=== PATIENT | male | born 1980 | race Caucasian/White ===

== ENCOUNTER 2018-12-21 11:59 | Emergency (ER) | payer OTHER ==
[~2018-12-21] VITALS: Ht 180.3 cm; Wt 127.0 kg
--- NOTE | 2018-12-21 13:22 | NUR ---
pt here with " ". pt alert [facility] 15. pt accidentally stabbed himself with knife in right thumb approx. 1130 today. pt has approx 3/4 inch vy 2/8 inch nonbleeding laceration right lateral. thumb proximal to wrist. pain rating 6. positive pulse and sensation right wrist and pt can move thumb. last tetanus 2014 or 2015. pt relates " felt like it hit a bone". done ann pt at 1329.
[2018-12-21] MEDS ORDERED: ONDANSETRON 4 MG (ZOFRAN) ORAL DISSOLVE TAB SL STA (13:49)
--- NOTE | 2018-12-21 14:30 | ED Upper Extremity ---
General Chief Complaint: Laceration Stated Complaint: LACERATION Nursing Triage Note: right thumb lac. Nursing Sepsis Screen: No Definite Risk History of Present Illness Date Seen by Provider: Dec 21, 2018 Time Seen by Provider: 13:45 Initial Comments 38-year-old male sustained an injury to the dorsum of his right thumb when cutting a tire with a knife at work. He is left-hand dominant he works at [employer], his last tetanus vaccine was approximately 2 years ago. Onset: just prior to arrival Pain/Injury Location: right thumb Method of Injury: incised Allergies and Home Medications Allergies Coded Allergies: No Known Drug Allergies (Unverified , 12/21/18) Home Medications Cephalexin 500 Mg Tablet, 500 MG PO TID Prescribed by: XI SHELDON on 12/21/18 1431 Patient Home Medication List Home Medication List Reviewed: Yes Review of Systems Constitutional: no symptoms reported, see HPI Skin: see HPI, other (laceration right thumb) All Other Systems Reviewed Negative Unless Noted: Yes Past Zmjuwnf-Hfqyqt-Zbhucr Hx Past Med/Social Hx: Reviewed Nursing Past Med/Soc Hx Patient Social History Alcohol Use: Occasionally Uses Recreational Drug Use: No Smoking Status: Current Everyday Smoker Recent Foreign Travel: No Contact w/Someone Who Travel: No Recent Infectious Disease Expo: No Physical Abuse: No Sexual Abuse: No Immunizations Up To Date Tetanus Booster (TDap): Less than 5yrs Physical Exam Vital Signs Vital Signs - First Documented 12/21/18 12/21/18 13:22 14:47 Temp 98.3 Pulse 88 Resp 12 B/P (MAP) 124/89 (101) Pulse Ox 97 O2 Delivery Room Air Capillary Refill : Less Than 3 Seconds Height, Weight, BMI Height: 5'11.00" Weight: 280lbs. oz. 127.777583py; BMI Method:Stated General Appearance: WD/WN, no apparent distress Neck: non-tender, full range of motion, supple, normal inspection Cardiovascular: normal peripheral pulses, regular rate, rhythm Respiratory: chest non-tender, lungs clear, normal breath sounds Hand: normal ROM, Right, laceration, soft tissue tenderness Neurologic/Psychiatric: no motor/sensory deficits, alert, normal mood/affect, oriented x 3 Skin: normal color, warm/dry Procedures/Interventions Wound Location: Upper Extremities (right thumb) Wound Length (cm): 1.5 Wound's Depth, Shape: superficial Wound Explored: clean Irrigated w/ Saline (ccs): 500 Other Closure Supply: Wound Adhesive Sterile Dressing Applied?: No Progress Patient tolerated closure well, wound well approximated. Progress/Results/Core Measures Results/Orders My Orders Orders - XI SHELDON Ondansetron Oral Dissolve Tab (Zofran (12/21/18 13:49) Vital Signs/I&O 12/21/18 12/21/18 13:22 14:47 Temp 98.3 96.9 Pulse 88 72 Resp 12 20 B/P (MAP) 124/89 (101) 122/83 (96) Pulse Ox 97 O2 Delivery Room Air Blood Pressure Mean: 101 Departure Impression Primary Impression: Laceration of right thumb Qualified Codes: S61.011A - Laceration without foreign body of right thumb without damage to nail, initial encounter Disposition: HOME, SELF-CARE Condition: Improved Departure-Patient Inst. Decision time for Depature: 14:15 Patient Instructions: Laceration Repair With Glue (DC) Add. Discharge Instructions: Take antibiotic as prescribed. Ice to wound 20 min every 4 hours, for pain or swelling. Keep clean and dry for 8 hours, then you may shower. Do not submerge the right hand in standing water: sink, bathtub, swimming pool, hot tub, etc. You may shower, don't let water aim directly at incision. You may use Tylenol 650 mg and ibuprofen 600 mg alternating every 4 hours for pain. Do not apply any petroleum based products to the wound adhesive: triple anabiot ic ointment or Vaseline type products. Let the wound adhesive fall off, on it's own. Do not pick or remove it. Wound for signs of infection: Redness, increased tenderness, warmth, or discolored drainage. Follow-up with your primary care provider in 2-3 days if symptoms are not improving or worsen. Return to emergency department for new, urgent health care needs. All discharge instructions reviewed with patient and/or family. Voiced understanding. Scripts Cephalexin (Cephalexin) 500 Mg Tablet 500 MG PO TID, #15 TAB 0 Refills Prov: XI SHELDONP 12/21/18 Work/School Note: Work Release Form Date Seen in the Emergency Department: Dec 21, 2018 Return to Work: Dec 22, 2018 Other Restrictions Listed Below: Limit use of right hand for lifting or carrying. XI SHELDON Dec 21, 2018 14:30
[2018-12-21] MEDS ORDERED: CEPH500T PO (14:31)
[2018-12-21 14:47] VITALS: BP 122/83
--- NOTE | 2018-12-21 14:47 | NUR ---
d/c instructions to pt. told to read all papers. scripts faxed. pt left ambulatory with . pt knows f/u. i went over the handtyped by information on the chart. pt had no iv. work release given.
== END 2018-12-21 14:47 | disposition home or self-care (01) ==
LOC: ER 12:00
DX: S61.011A Laceration without foreign body of right thumb without damage to nail, initial encounter (principal); F17.200 Nicotine dependence, unspecified, uncomplicated; W26.0XXA Contact with knife, initial encounter; Y99.0 Civilian activity done for income or pay; Y92.59 Other trade areas as the place of occurrence of the external cause
CPT/HCPCS: 12001

== ENCOUNTER 2021-10-13 17:02 | Emergency (ER) | payer BC ==
[~2021-10-13] VITALS: Ht 180 cm; Wt 129.0 kg
[~2021-10-13 17:02] MED LIST: CEPH500T PO
[2021-10-13 17:05] VITALS: BP 113/69
--- NOTE | 2021-10-13 18:18 | ED Upper Extremity ---
General Chief Complaint: Laceration Stated Complaint: R HAND LAC/VOMITING/SYNCOPE Nursing Triage Note: LACERTION TO RIGHT HAND DUE TO SCRAPING IT ON HIS DOGS TOOTH. STATES IT WAS NOT A DOG BITE. PT THEN PASSED OUT AND VOMITED. Source: patient Exam Limitations: no limitations History of Present Illness Date Seen by Provider: Oct 13, 2021 Time Seen by Provider: 17:41 Initial Comments This is a well-appearing 41-year-old male who presented to the ER with a laceration to his right hand that was sustained by his dog's tooth. States that his dog got off the chain and while they were trying to "vargas her" she was running with her mouth open and his hand caught her tooth cutting it open. They just adopted her from the [employer] today and she is up-to-date on all of her immunizations including her rabies. States that whenever he saw the blood he became lightheaded, passed out, and when he woke up he vomited. States that he has had issues with feeling queasy when exposed to blood in the past however this was the worst. He is feeling much improved now. His tetanus is up-to-date. Allergies and Home Medications Allergies Coded Allergies: No Known Drug Allergies (Unverified , 12/21/18) Patient Home Medication List Home Medication List Reviewed: Yes Amoxicillin/Potassium Clav (Amox Tr-K Clv 875-125 mg Tab) 875 Mg-125 Mg Tablet, 1 EACH PO BID Prescribed by: MARIBETH SANTANA on 10/13/21 1843 Cephalexin (Cephalexin) 500 Mg Tablet, 500 MG PO TID Prescribed by: XI SHELDON on 12/21/18 1431 Review of Systems Constitutional: see HPI EENTM: no symptoms reported Respiratory: no symptoms reported Cardiovascular: no symptoms reported Gastrointestinal: see HPI Genitourinary: no symptoms reported Musculoskeletal: no symptoms reported Skin: other ("pagan" and sweaty ) Psychiatric/Neurological: See HPI Past Fzfntyy-Hcrylv-Bwvvfw Hx Patient Social History Smoking Status: Current Everyday Smoker Substance use?: No Alcohol Use?: No Immunizations Up To Date Tetanus Booster (TDap): Less than 5yrs Physical Exam Vital Signs Vital Signs - First Documented 10/13/21 17:05 Temp 36.3 Pulse 75 Resp 16 B/P (MAP) 113/69 (84) Pulse Ox 94 O2 Delivery Room Air Capillary Refill : Less Than 3 Seconds Height, Weight, BMI Height: 5'11.00" Weight: 280lbs. oz. 127.002143cs; 39.00 BMI Method:Stated General Appearance: WD/WN, no apparent distress HEENT: PERRL/EOMI, normal ENT inspection Neck: full range of motion, normal inspection Cardiovascular: regular rate, rhythm, no murmur; No gallop/S3, No friction rub Respiratory: lungs clear, normal breath sounds, no respiratory distress, no accessory muscle use Gastrointestinal: normal bowel sounds, non tender, soft Back: normal inspection, no vertebral tenderness Shoulder: normal inspection, no evidence of injury Wrist: Yes normal inspection, Yes no evidence of injury Hand: Right, laceration (3cm linear laceration over right thumb base ), swelling Neurologic/Tendon: normal sensation, normal motor functions, normal tendon functions, responds to pain Neurologic/Psychiatric: alert, normal mood/affect, oriented x 3 Skin: normal color, warm/dry Progress/Results/Core Measures Results/Orders My Orders Vital Signs/I&O Blood Pressure Mean: 84 Progress Progress Note : Progress Note Patient examined in no acute distress. EKG sinus rhythm with no ST elevation or depression. His syncopal episode is likely related to hand trauma and visualization of blood. He is feeling much improved at this time. He is up-to-date on his tetanus immunization, reports having it within the last 5 years. Unable to recall exact date. The dog is up-to-date on vaccinations including rabies. Cleanse site with chlorhexidine and saline, irrigated with copious amounts of saline, locally and anesthetized area with 3 cc lidocaine 1%. No tendon or arterial involvement. Approximated wound edges with 4, 4-0 Nylon sutures. Tolerated well. Will electronically prescribe Augmentin. Discharge POC reviewed and he is agreeable with plan. No concerns voiced. Initial ECG Impression Date: Oct 13, 2021 Initial ECG Impression Time: 17:34 Initial ECG Rate: 75 Initial ECG Rhythm: Normal Sinus Initial ECG Intervals: Normal Initial ECG Impression: Normal Initial ECG Comparisson: No Previous ECG Available Departure Impression Primary Impression: Hand laceration Disposition: HOME, SELF-CARE Condition: Improved Departure-Patient Inst. Decision time for Depature: 18:38 Referrals: NO,LOCAL PHYSICIAN (PCP/Family) Primary Care Physician Patient Instructions: Laceration Repair With Stitches ED Add. Discharge Instructions: Plan: 1. Return in 7-10 days for suture removal. 2. Take antibiotics as directed and complete full course. 3. Wash daily with soap and water, pat dry, keep covered for first couple days or if working outside or in dirty environment. 4. Monitor for any new, concerning, or worsening symptoms. 5. Monitor for signs of infection: redness, swelling, increased pain and follow up with your doctor or return if symptoms develop. All discharge instructions reviewed with patient and/or family. Voiced understanding. Scripts Amoxicillin/Potassium Clav (Amox Tr-K Clv 875-125 mg Tab) 875 Mg-125 Mg Tablet 1 EACH PO BID for 7 Days, #14 TAB 0 Refills Prov: MARIBETH SANTANA APRN 10/13/21 MARIBETH SANTANA APRN Oct 13, 2021 18:18
[2021-10-13] MEDS ORDERED: AMOX1TAB12 PO (18:43)
== END 2021-10-13 18:57 | disposition home or self-care (01) ==
LOC: EDUNIT# 17:02 → ER 17:03
DX: S61.011A Laceration without foreign body of right thumb without damage to nail, initial encounter (principal); R55 Syncope and collapse; W54.0XXA Bitten by dog, initial encounter
CPT/HCPCS: 12002; 93005

== ENCOUNTER 2023-02-07 23:22 | Emergency (ER) | payer OTHER, BC ==
[~2023-02-07] VITALS: Ht 180 cm; Wt 126.0 kg
[~2023-02-07 23:22] MED LIST changes: +AMOX1TAB12 PO
[2023-02-07 23:35] VITALS: BP 124/92
--- NOTE | 2023-02-08 00:21 | ED Lower Extremity ---
General Chief Complaint: Lower Extremity Stated Complaint: LEFT FOOT INJURY,LOUD POPPING NOISE Nursing Triage Note: Pt presents with c/o L foot pain. Pt has brace on ankle from previous injury. 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 He states pain from ankle to great toe. Source: patient Exam Limitations: no limitations History of Present Illness Date Seen by Provider: Feb 08, 2023 Time Seen by Provider: 00:10 Initial Comments Patient is a 42-year-old male who presents to the emergency room with a chief complaint of left forefoot pain. He states earlier this evening he was climbing onto a forklift when he heard a loud "pop" in his foot. He had immediate pain and inability to bear weight. He states his forefoot is starting to feel "numb". He is able to wiggle his toes. He states that he "rolled his ankle" on Friday of this last week, 2 days ago. He has been wearing an ankle brace. He has no pain in the ankle, no pain over the Achilles tendon, no calf pain or knee pain. He did not fall when this happened. He states that he has not taken anything for the pain. Attempting to bear weight makes it feel worse nothing really makes it feel any better. Onset: just prior to arrival Severity: moderate Pain/Injury Location: left foot Method of Injury: other (stepped wrong) Modifying Factors: Improves With Immobilization; Worse With Movement Allergies and Home Medications Allergies Coded Allergies: No Known Drug Allergies (Unverified , 12/21/18) Patient Home Medication List Home Medication List Reviewed: Yes Amoxicillin/Potassium Clav (Amox Tr-K Clv 875-125 mg Tab) 875 Mg-125 Mg Tablet, 1 EACH PO BID Prescribed by: MARIBETH SANTANA on 10/13/21 1843 Cephalexin (Cephalexin) 500 Mg Tablet, 500 MG PO TID Prescribed by: XI SHELDON on 12/21/18 1431 Naproxen (Naprosyn) 500 Mg Tablet, 500 MG PO BID Prescribed by: SPIKE LEE on 02/08/23 0116 Review of Systems Constitutional: see HPI Musculoskeletal: other (left forefoot pain) Skin: no symptoms reported Psychiatric/Neurological: Numbness All Other Systems Reviewed Negative Unless Noted: Yes Past Thlqodd-Hzvvsp-Jwfklw Hx Immunizations Up To Date Tetanus Booster (TDap): Less than 5yrs Physical Exam Vital Signs Vital Signs - First Documented 02/07/23 23:35 Temp 36.5 Pulse 61 Resp 16 B/P (MAP) 124/92 (103) Capillary Refill : Less Than 3 Seconds Height, Weight, BMI Height: 5'11.00" Weight: 280lbs. oz. 127.351849if; 38.00 BMI Method:Stated General Appearance: WD/WN, no apparent distress Respiratory: no respiratory distress, no accessory muscle use Gastrointestinal: other (obese) Hips: bilateral hip normal range of motion Legs: bilateral leg normal range of motion Knees: left knee non-tender, left knee normal inspection; bilateral knee normal range of motion; left knee no evidence of injury Ankles: bilateral ankle non-tender, bilateral ankle normal inspection, bilateral ankle normal range of motion, bilateral ankle no evidence of injury Feet: left foot soft tissue tenderness (over the plantar surface of the left foot - MTP joints), left foot other (normal pulses in the left foot. No obvious swelling. No erythema. No increased warmth. normal cap refill) Neurologic/Tendon: normal sensation, normal motor functions, normal tendon functions Neurologic/Psychiatric: alert, normal mood/affect, oriented x 3 Skin: normal color, warm/dry Progress/Results/Core Measures Results/Orders My Orders Orders - SPIKE LEE MD Foot, Left, 3 Views (02/08/23 00:16) Ketorolac Injection (Ketorolac Injection (02/08/23 00:54) Vital Signs/I&O 02/07/23 23:35 Temp 36.5 Pulse 61 Resp 16 B/P (MAP) 124/92 (103) Blood Pressure Mean: 103 Progress Progress Note : Progress Note Patient seen and evaluated by me. Evaluation today includes physical exam and left foot x-ray. Pertinent physical exam findings well-developed well-nourished obese male in no acute distress. His left foot is tender to palpation over the distal metatarsophalangeal joints. No significant swelling is noted. He has brisk cap refill in the toes. Normal dorsalis pedis and posterior tibial pulses. Minimal tenderness along the plantar fascia. Achilles tendon on the left is intact. No calf tenderness or swelling. Differential diagnosis based on history and physical exam - fracture, tendon rupture, foot sprain. X-rays independently reviewed and interpreted by me. No obvious fractures or dislocations to the left foot. Patient is treated with ibuprofen here in the department. Recommendations for Ant wrap, elevation and ice packs for pain. I suggested he follow-up with his primary care physician. He may need to see an orthopedic surgeon in the future to further evaluate the tendons in his left foot. No clinical or objective findings to warrant any other imaging at this time. No proximal joint tenderness pain or swelling. Patient is comfortable with the plan of care. All questions are sought and answered. Patient is stable for discharge. Diagnostic Imaging Diagonstic Imaging: Xray Comments left foot x-ray independently reviewed and interpreted by angelique fractures or other acute pathology identified Departure Impression Primary Impression: Left foot pain Disposition: HOME, SELF-CARE Condition: Stable Departure-Patient Inst. Decision time for Depature: 01:13 Referrals: LEIGH TREADWELL MD (PCP/Family) Primary Care Physician Add. Discharge Instructions: Use the naproxen 500mg tablets one twice a day with food. Ice the foot off and on for the next 2-3 days. Elevate the foot at night for swelling. Follow up with your primary doctor on Friday OR I have also given you referral information for the Ortho doctors here at [facility] - Dr Morales and Dr Valdovinos. Ant wrap the foot for comfort and stability. Scripts Naproxen (Naprosyn) 500 Mg Tablet 500 MG PO BID for 14 Days, #28 TAB 0 Refills Prov: SPIKE LEE MD 02/08/23 Work/School Note: Work Release Form Date Seen in the Emergency Department: Feb 08, 2023 Return to Work: Feb 11, 2023 SPIKE LEE MD Feb 08, 2023 00:21
[2023-02-08] MEDS ORDERED: KETOROLAC INJ 30 MG/ML VIAL IM STA (00:54)
[2023-02-08] MEDS ORDERED: NAPR-1071 PO (01:16)
--- NOTE | 2023-02-08 07:50 | Diagnostic Imaging Report ---
EXAMINATION: Left foot radiographs, 3 views. COMPARISON: None. HISTORY: 42-year-old male, left foot pain. FINDINGS: There is a bipartite lateral sesamoid. There is sideplate and screw fixation hardware at the level of the distal fibula which appears intact. There is degenerative type enthesopathy at the Achilles tendon insertion. Joint spaces are well preserved. There is no acute fracture. IMPRESSION: 1. No identified acute bony abnormality of the left foot. Dictated by: Dictated on workstation # [id number]
== END 2023-02-08 01:26 | disposition home or self-care (01) ==
LOC: EDUNIT# 23:22 → ER 23:27
DX: M79.672 Pain in left foot (principal); Z28.310 Unvaccinated for COVID-19; X50.1XXA Overexertion from prolonged static or awkward postures, initial encounter; Y92.59 Other trade areas as the place of occurrence of the external cause; Y93.39 Activity, other involving climbing, rappelling and jumping off; Y99.0 Civilian activity done for income or pay
CPT/HCPCS: 73630